=== PATIENT | male | born 1950 | race Caucasian/White ===

== ENCOUNTER 2017-11-21 18:45 | Emergency (ER) | payer MEDICARE, OTHER ==
[2017-11-21] MEDS: ACETAMINOPHEN 325 MG TAB PO (19:46)
== END 2017-11-21 21:27 | disposition home or self-care (01) ==
LOC: FTE 18:45
DX: J40 Bronchitis, not specified as acute or chronic (principal); Z87.891 Personal history of nicotine dependence
CPT/HCPCS: 71045; 99283-25

== ENCOUNTER 2018-02-20 15:21 | Emergency (ER) | payer MEDICARE, OTHER | END 2018-02-20 18:48 | disposition home or self-care (01) | LOC: FTE 15:21 | DX: J06.9 Acute upper respiratory infection, unspecified (principal) | CPT/HCPCS: 99283 ==

== ENCOUNTER 2018-08-18 14:25 | Emergency (ER) | payer MEDICARE, OTHER | END 2018-08-18 18:12 | disposition home or self-care (01) | LOC: FTE 14:25 | DX: S39.92XA Unspecified injury of lower back, initial encounter (principal); S32.040A Wedge compression fracture of fourth lumbar vertebra, initial encounter for closed fracture; W07.XXXA Fall from chair, initial encounter; Y92.9 Unspecified place or not applicable | CPT/HCPCS: 72131; 72192; 99284-25 ==